=== PATIENT | male | born 1955 | race African-American/Black ===

== ENCOUNTER → 2017-05-18 | Outpatient (CLI) | payer OTHER ==
[~2017-05-18] MED LIST: ADULT LOW DOSE81 M1 PO; Aspirin E.C. PO; CEFUROXIME500 MG PO; COZAAR100 MG PO; CYCLOBENZAPRINE5 MG PO; FLEXERIL10 MG PO; MICARDIS40 MG PO; PRILOSEC20 MG PO; TRAMADOL HCL50 MG PO; XANAX0.25 MG PO
== END | disposition home or self-care (01) ==
LOC: NUC 10:22
DX: M17.0 Bilateral primary osteoarthritis of knee (principal); M19.072 Primary osteoarthritis, left ankle and foot; Z90.79 Acquired absence of other genital organ(s)
CPT/HCPCS: 78306; A9503